=== PATIENT | female | born 1975 | race Two or more races ===

== ENCOUNTER 2021-08-10 17:04 | Emergency (ER) | payer MEDICAID ==
[~2021-08-10] VITALS: Ht 172.7 cm; Wt 56.8 kg
[~2021-08-10 17:04] MED LIST: CLIN150C8 PO
[2021-08-10 17:19] VITALS: BP 125/79
[2021-08-10] MEDS ORDERED: TETanus/Pertussis (Acell)/Diphther VAC/PF (Tdap-Adult) 0.5ml syringe IMVAC ONE (18:35)
== END 2021-08-10 19:13 | disposition home or self-care (01) ==
LOC: ER 17:05
DX: S61.012A Laceration without foreign body of left thumb without damage to nail, initial encounter (principal); Z79.2 Long term (current) use of antibiotics; W26.0XXA Contact with knife, initial encounter; Y93.89 Activity, other specified; Y92.89 Other specified places as the place of occurrence of the external cause; Y99.8 Other external cause status
CPT/HCPCS: 12001; 90471; 90715; 99283

== ENCOUNTER 2021-09-04 11:16 | Day surgery (SDC) | payer MEDICAID ==
[2021-08-28 11:41] LABS: BASOPHILS % (AUTO) 0.5 % (0-1); EOSINOPHILS % (AUTO) 0.8 % (0-6); LYMPHOCYTES # (AUTO) 2.1 X10'3 (1.1-4.8); LYMPHOCYTES % (AUTO) 32.8 % (21-51); MEAN CORPUSCULAR HGB CONC 32.8 g/dL (33.0-36.5); MEAN CORPUSCULAR VOLUME 91.4 FL (78-98); MEAN PLATELET VOLUME 10.2 FL (7.4-10.4); MONOCYTES # (AUTO) 0.4 X10'3 (0-0.9); MONOCYTES % (AUTO) 6.7 % (2-12); NEUTROPHILS # (AUTO) 3.7 X10'3 (1.8-7.7); NEUTROPHILS % (AUTO) 59.2 % (42-75); PRE OP HEMATOCRIT 37.8 % (35.0-45.0); PRE OP HEMOGLOBIN 12.4 g/dL (12.0-16.0); PRE OP PLATELET COUNT 244 X10'3 (140-440); RED BLOOD COUNT 4.14 X10'6 (4.20-5.60); RED CELL DISTRIBUTION WIDTH 13.5 % (11.5-14.5)
[2021-08-28 12:02] LABS: ALBUMIN 3.7 G/DL (3.4-5.0); ALBUMIN/GLOBULIN RATIO 0.8 (1.1-1.5); ALKALINE PHOSPHATASE 123 IU/L (46-116); BLOOD UREA NITROGEN 11 MG/DL (7-18); BUN/CREATININE RATIO 17.5 (6.6-38.0); CALCIUM 8.8 MG/DL (8.5-10.1); CHLORIDE 104 MMOL/L (99-107); CREATININE 0.63 MG/DL (0.40-0.90); PRE OP ALT 22 U/L (30-65); PRE OP ANION GAP 8 (8-16); PRE OP AST 17 U/L (10-37); PRE OP BILIRUB, TOTAL 0.2 MG/DL (0.0-1.0); PRE OP GLUCOSE 102 MG/DL (70-104); PRE OP POTASSIUM 3.5 MMOL/L (3.4-5.1); PRE OP SODIUM 140 MMOL/L (135-145); TOTAL CARBON DIOXIDE 27.7 MMOL/L (24-32); TOTAL PROTEIN 8.1 G/DL (6.4-8.2); eGFR > 90 ML/MIN
[2021-08-28 12:07] LABS: HCG SERUM QL NEGATIVE
[2021-09-04] VITALS (8 sets, daily range): BP systolic 116–132; BP diastolic 53–85
[~2021-09-04] VITALS: Ht 170.2 cm; Wt 62.5 kg
[~2021-09-04 11:16] MED LIST changes: -CLIN150C8 PO; +NO HOME MEDS; +ceFAZolin/D5W- 1GM premix 50 ML IV ONE; +famotidine 20mg tablet PO ONE; +ringers solution, lacted 1,000 ML IV SCH
--- NOTE | 2021-09-04 11:30 | NUR ---
PATIENT PREPPED FOR SURGERY, LEFT THUMB VERY SENSATION TO TOUCH WHEN PREPPING. PTS EXTREMITIES VERY COLD, WRAPPED IN WARM BLANKETS PRIOR TO IV STARTS. LIDOCAINE USED FOR IV STARTS. IV'S STARTED WITHOUT DIFFICULTY. PT ANXIOUS ABOUT STATES HE HAS RECENTLY RECEIVED CHEMOTHERAPY AFTER BEING DIAGNOSED WITH CANCER. SHE STATES SHE HAS A LOT ON HER PLATE RIGHT NOW.
[2021-09-04] MEDS ORDERED: fentaNYL/PF 50MCG/1 ML 2ML syringe IV PRN ×2 (11:40)
[2021-09-04] MEDS ORDERED: ringers solution, lacted 1,000 ML IV SCH (11:40)
[2021-09-04] MEDS ORDERED: labetalol 20mg/4ml (5mg/ml) syringe IV PRN (11:40)
[2021-09-04] MEDS ORDERED: morphine 2 MG/ML inj. syringe IV PRN (11:40)
[2021-09-04] MEDS ORDERED: morphine 4 MG/ML inj SYRINge IV PRN (11:40)
[2021-09-04] MEDS ORDERED: ondansetron/PF 4mg/2ml inj IV PRN (11:40)
[2021-09-04] MEDS ORDERED: hydrALAZINE 20mg/ml inj. IV PRN (11:40)
[2021-09-04] MEDS ORDERED: BUPIVAcaine/PF 7.5mg/ml (0.75%) 10ml vial ONE (12:02)
[2021-09-04] MEDS ORDERED: midazolam 1 mg/ML 2ml injection ONE (13:15)
[2021-09-04] MEDS ORDERED: meperidine/PF 25mg/ml syringe IV ONE (14:25)
--- NOTE | 2021-09-04 15:21 | NUR ---
ALL DISCHARGE CRITERIA HAS BEEN MET. VSS, PAIN AT A TOLERABLE LEVEL, ABLE TO SAFELY AMBULATE AND TRANSFER SELF. IV TAKEN OUT WITHOUT ANY COMPLICATIONS. ALL DISCHARGE INSTRUCTIONS COVERED WITH PATIENT AND ALL QUESTIONS ANSWERED. PATIENT TAKEN OUT VIA WHEELCHAIR TO PERSONAL VEHICLE WHERE FAMILY DROVE PATIENT HOME. Addendum: 09/04/21 at 1541 by Kendell Law RN Amended: Links added.
== END 2021-09-04 15:21 | disposition home or self-care (01) ==
LOC: PAS 11:16
PROVIDERS: ATTEND Orthopaedic Surgery Hand Surgery
DX: S61.012A Laceration without foreign body of left thumb without damage to nail, initial encounter (principal); S64.02XA Injury of ulnar nerve at wrist and hand level of left arm, initial encounter; Z20.822 Contact with and (suspected) exposure to COVID-19; Z72.89 Other problems related to lifestyle; Z79.899 Other long term (current) drug therapy; W26.0XXA Contact with knife, initial encounter; Y93.89 Activity, other specified; Y92.89 Other specified places as the place of occurrence of the external cause; Y99.8 Other external cause status
CPT/HCPCS: 26357; 36415; 64831; 80053; 82948; 84703; 85025; J0690; J2250; J3490; J7030; J7120; U0003; U0005; Z7506; Z7508; Z7512; A4215; A4618; A7000